=== PATIENT | male | born 1995 | race Caucasian/White ===

== ENCOUNTER 2018-10-10 03:58 | Emergency (ER) | payer BC ==
[~2018-10-10] VITALS: Ht 177.8 cm; Wt 66.1 kg
[2018-10-10 04:09] VITALS: BP 138/64; TEMP 99.5
[2018-10-10] MEDS ORDERED: CELEXA 20MG20 MG/TAB PO (06:12)
[2018-10-10] MEDS ORDERED: AMOXICILLIN875 MG PO (06:13)
[2018-10-10 08:20] VITALS: PULSE 85
== END 2018-10-10 08:20 | disposition home or self-care (01) ==
LOC: COL.ER 03:58
DX: J11.1 Influenza due to unidentified influenza virus with other respiratory manifestations (principal)